=== PATIENT | female | born 1950 | race Caucasian/White ===

== ENCOUNTER → 2024-08-31 | Outpatient (CLI) | payer OTHER, SELFPAY ==
[2024-08-31 11:32] LABS: Basophils # (Auto) 0.1 Thou/mm3 (0.0-0.2); Basophils % (Auto) 1 % (0-2.5); Eosinophils # (Auto) 0.4 Thou/mm3 (0.0-0.5); Eosinophils % (Auto) 3 % (0-10); Hematocrit 35.7 % (36.0-46.0); Hemoglobin 11.4 g/dL (12.0-16.0); Immature Granulocytes % (Auto) 1 % (0-0); Immature Granulocytes Auto 0.07 Thou/mm3 (0.00-0.00); Lymphocytes # (Auto) 2.4 Thou/mm3 (1.0-4.8); Lymphocytes % (Auto) 20 % (10-50); Mean Corpuscular HGB Conc 31.9 g/dl (31.0-37.0); Mean Corpuscular Hemoglobin 29.1 pg (25.0-35.0); Mean Corpuscular Volume 91 fL (80-100); Monocytes # (Auto) 0.8 Thou/mm3 (0.0-0.8); Monocytes % (Auto) 7 % (0-12); Neutrophils # (Auto) 8.1 Thou/mm3 (1.8-7.7); Neutrophils % (Auto) 69 % (37-80); Nucleated Red Blood Cell % 0 /100 WBC (0); Platelet Count 309 Thou/mm3 (140-440); RDW Standard Deviation 50.3 fL (36.4-46.3); Red Blood Count 3.92 Miln/mm3 (4.00-5.20); White Blood Count 11.8 Thou/mm3 (3.6-11.0)
[2024-08-31 11:52] LABS: Creatinine MALB Rnd Ur 82 mg/dL (30-125); Microalbumin Creat Ratio 463 mg/gCrea (<30); Microalbumin, Random Urine > 380 mg/L (0-300); T4 (Thyroxine) 5.6 mcg/dL (4.5-10.9)
[2024-08-31 11:53] LABS: Glucose Estimated Average 160 mg/dL (80-131); Hemoglobin A1C 7.2 % Hgb (4.8-6.0)
[2024-08-31 12:00] LABS: Alanine Aminotransferase 24 U/L (10-49); Albumin, Serum 3.8 gm/dL (3.4-4.8); Albumin/Globulin Ratio 1.4 (1.2-2.2); Alkaline Phosphatase 140 U/L (46-116); Anion Gap 9 (7-16); Aspartate Amino Transferase 26 U/L (0-34); BUN/Creatinine Ratio 36 Ratio (12-20); Bilirubin,Total 0.3 mg/dL (0.3-1.2); Blood Urea Nitrogen 36 mg/dL (9-23); Calcium 9.3 mg/dL (8.3-10.6); Calcium (Corrected) 9.5 mg/dL (8.5-10.1); Cardiac Risk Estimate 3.9 RATIO (3.7-5.6); Chloride 114 mMol/L (98-107); Cholesterol 151 mg/dL (132-200); Free T4 (Free Thyroxine) 1.02 ng/dL (0.89-1.76); Globulin 2.7 gm/dL (2.3-3.5); Glucose 186 mg/dL (74-106); HDL Cholesterol 39 mg/dL (40-60); LDL Cholesterol,Calculated 82 mg/dL (0-130); Osmolality,Calculated 288 (275-295); Potassium 4.9 mMol/L (3.4-5.1); Sodium 138 mMol/L (136-145); Thyroid Stimulating Hormone 2.76 uIU/mL (0.55-4.78); Total Protein 6.5 gm/dL (5.7-8.2); Triglycerides 148 mg/dL (30-150); eGFR 59 See Note
[2024-08-31 12:10] LABS: Carbon Dioxide 14.8 mMol/L (20.0-31.0)
[2024-08-31 13:03] LABS: Hepatitis A Antibody IgM Non Reactive (Non React); Hepatitis B Core Antibody IgM Non Reactive (Non React); Hepatitis B Surface Antigen Non Reactive (Non React); Hepatitis C Antibody Non Reactive (Non React); Vitamin B12 387 pg/mL (211-911)
== END | disposition home or self-care (01) ==
PROVIDERS: PCP Family Medicine; Referring Provider Internal Medicine; Visit Provider Internal Medicine
DX: E11.51 Type 2 diabetes mellitus with diabetic peripheral angiopathy without gangrene (principal); I70.235 Atherosclerosis of native arteries of right leg with ulceration of other part of foot; Z95.828 Presence of other vascular implants and grafts; Z89.411 Acquired absence of right great toe; E78.5 Hyperlipidemia, unspecified; G14 Postpolio syndrome; N95.1 Menopausal and female climacteric states; Z87.891 Personal history of nicotine dependence
CPT/HCPCS: 36415; 80053; 80061; 80074; 82043; 82306; 82570; 82607; 83036; 84436; 84439; 84443; 85025